=== PATIENT | female | born 1980 | race Caucasian/White ===

== ENCOUNTER 2018-08-04 12:48 | Outpatient (CLI) | payer BC ==
--- NOTE | 2018-08-04 17:39 | ULT ---
RIGHT BREAST ULTRASOUND: Date: 08/04/18 HISTORY: Palpable abnormality in right axilla. FINDINGS: Correlation is made with the mammogram of same date. Sonographic evaluation of the region of palpable concern in the right axilla demonstrates a well circ umscribed, oval, nonshadowing, hypoechoic solid mass with echogenic hilum, consistent with lymph node . This measures 2.1 x 1.8 x 0.7 cm. IMPRESSION: BIRADS Category 2 - Benign findings. Return to annual mammographic screening. POS: OFF
== END 2018-08-04 12:49 | disposition home or self-care (01) ==
LOC: BICMAMMO 12:48
DX: Z13.820 Encounter for screening for osteoporosis (principal); Z78.0 Asymptomatic menopausal state; Z85.3 Personal history of malignant neoplasm of breast
CPT/HCPCS: 77066; G0279

== ENCOUNTER 2022-07-27 11:24 | Emergency (ER) | payer BC ==
[2022-07-27] MEDS ORDERED: Dexamethasone 10 MG/ML VIAL ONE (12:13)
[2022-07-27 13:00] LABS: #Eosinphils 0.1 thou/uL (0.0-0.7); #Monocytes 0.7 thou/uL (0.11-0.59); #Neutrophils 7.5 thou/uL (1.40-6.50); %Basophils 0.2 % (0.0-1.0); %Eosinophils 0.9 % (0.0-10.0); %Monocytes 7.1 % (0.0-10.0); %Neutrophils 80.8 % (42.0-75.0); Hemoglobin 13.7 g/dL (12.0-16.0); Mean Corpuscular HGB CONC 32.2 g/dL (32.0-36.0); Mean Corpuscular Hemoglobin 31.3 pg (27.0-31.0); Mean Corpuscular Volume 97.2 fl (78.0-98.0); Mean Platelet Volume 6.9 fL (7.4-10.4); Platelet Count 221 10x3/uL (130-400); RBC Distribution Width 11.5 % (11.5-14.5); Red Blood Cell (RBC) Count 4.38 mill/uL (4.20-5.40); White Blood Cell (WBC) Count 9.3 10x3/uL (4.8-10.8)
[2022-07-27 13:21] LABS: ALT (SGPT) 65 U/L (8-55); AST (SGOT) 26 U/L (5-34); Albumin 3.7 g/dL (3.5-5.0); Alkaline Phosphatase 105 U/L (40-110); Anion Gap 12 mmol/L (10-20); BUN (Urea Nitrogen) 8 mg/dL (7.0-18.7); Bilirubin, Total 0.4 mg/dL (0.2-1.2); Calc. Creatinine Clearance 0 mL/min (70-130); Calcium 8.2 mg/dL (7.8-10.44); Carbon Dioxide 24 mmol/L (22-29); Chloride 107 mmol/L (98-107); Estimated GFR 81; Globulin 3.1 g/dL (2.4-3.5); Glucose 89 mg/dL (70-105); Potassium 3.7 mmol/L (3.5-5.1); Protein, Total 6.8 g/dL (6.0-8.3); Sodium 139 mmol/L (136-145)
[2022-07-27 13:43] LABS: SARS-CoV-2 NAA Rapid Test DETECTED (NotDetected)
== END 2022-07-27 14:32 | disposition home or self-care (01) ==
LOC: ERS 11:24
DX: U07.1 COVID-19 (principal); J45.909 Unspecified asthma, uncomplicated
CPT/HCPCS: 36415; 80053; 85025; 87081; 87430; 93005; 96374; J1100

== ENCOUNTER 2023-11-04 08:30 | Outpatient (CLI) | payer BC | END 2023-11-04 08:31 | disposition home or self-care (01) | LOC: BICMAMMO 08:30 | PROVIDERS: ATTEND Family Medicine | DX: Z12.31 Encounter for screening mammogram for malignant neoplasm of breast (principal); Z80.3 Family history of malignant neoplasm of breast | CPT/HCPCS: 77063; 77067 ==

== ENCOUNTER 2024-01-27 16:45 | Emergency (ER) | payer BC ==
[2024-01-27 17:58] LABS: #Basophils 0.04 10x3/uL (0.0-0.2); %Basophils 0.5 % (0.0-1.0); %Lymphocytes 25.5 % (21.0-51.0); %Monocytes 7.3 % (0.0-10.0); %Neutrophils 61.5 % (42.0-75.0); Hematocrit 44.8 % (36.0-47.0); Hemoglobin 14.8 g/dL (12.0-16.0); Mean Corpuscular Volume 93.9 fL (78.0-98.0); Mean Platelet Volume 9.1 fL (7.4-10.4); Platelet Count 402 10x3/uL (130-400); Red Blood Cell (RBC) Count 4.77 mill/uL (4.20-5.40)
[2024-01-27 18:49] LABS: ALT (SGPT) 36 U/L (8-55); AST (SGOT) 24 U/L (5-34); Alkaline Phosphatase 76 U/L (40-110); Anion Gap 14 mmol/L (10-20); BUN (Urea Nitrogen) 16 mg/dL (7.0-18.7); Bilirubin, Total 0.2 mg/dL (0.2-1.2); Calc. Creatinine Clearance 0 mL/min (70-130); Calcium 9.3 mg/dL (7.8-10.44); Carbon Dioxide 24 mmol/L (22-29); Chloride 105 mmol/L (98-107); Estimated GFR 44; Globulin 3.8 g/dL (2.4-3.5); Glucose 98 mg/dL (70-105); Potassium 4.3 mmol/L (3.5-5.1); Protein, Total 7.8 g/dL (6.0-8.3); Sodium 139 mmol/L (136-145)
[2024-01-27] MEDS ORDERED: Cefepime 2 GM VIAL ONE (19:03)
[2024-01-27] MEDS ORDERED: Sodium Chloride 0.9% 100 ML ONE (19:05)
[2024-01-27] MEDS ORDERED: Vancomycin (BATCH) 1.75 GM in Premix 1 BAG IVPB SCH (20:45)
[2024-01-27] MEDS ORDERED: diphenhydrAMINE 50 MG/ML VIAL ONE (22:25)
[2024-01-27] MEDS ORDERED: Famotidine/PF 20 mg/2ml Vial ONE (22:27)
== END 2024-01-27 23:05 | disposition home or self-care (01) ==
LOC: ERS 16:45
DX: L03.116 Cellulitis of left lower limb (principal); L03.115 Cellulitis of right lower limb; B37.2 Candidiasis of skin and nail
CPT/HCPCS: 36415; 80053; 83605; 85025; 96374; 96375; J0692; J1200; J3370; J3490; S0028

== ENCOUNTER 2024-06-22 14:14 | Outpatient (CLI) | payer BC | END 2024-06-22 14:15 | disposition home or self-care (01) | LOC: BICMAMMO 14:14 | PROVIDERS: ATTEND Family Medicine | DX: N61.0 Mastitis without abscess (principal); N64.4 Mastodynia | CPT/HCPCS: G0279 ==